=== PATIENT | male | born 1950 | race Caucasian/White ===

== ENCOUNTER → 2019-11-16 | Outpatient (CLI) | payer MEDICARE, OTHER ==
--- NOTE | 2019-11-18 10:39 | CON ---
[address] [address] CONSULTATION Name: FRANCESCO MCDANIEL Room: [facility]#: [id number] Admission: 11/16/19 Attend Phys: Sarkis Palacio MD Discharge: Date of : 48 Report #: [id number] THIS REPORT FOR: //name// cc: Guido Ny Bradley Dean DO ~ THIS REPORT FOR: //name// CC: Dr. Guido Cordoba MD DATE OF CONSULTATION: 11/16/2019 [facility]OGY CONSULT NOTE REFERRING PHYSICIANS: Vladislav Rodríguez and Beronica Cordoba MD and Dr. Guido Ny. PRIMARY SITE AND HISTOPATHOLOGY FINDINGS: The patient has findings, probably consistent with bone metastasis from a primary lung cancer. HISTORY OF PRESENT ILLNESS: The patient is a 69-year-old gentleman who has had worsening back pain for several weeks. He received stereotactic body radiation therapy at [facility] for a presumed lung cancer by Dr. Shetty in 2017. He had g worsening back pain, and he has been taking Percocet for the back pain. He also has an abdominal aortic aneurysm, that measured about 5.5 cm and he is scheduled to see a vascular surgeon on 11/19/2019. The patient is averaging about 4 Percocet per day. The patient had a CT of the abdomen on 10/26/2019 which revealed an abdominal aortic aneurysm that measured 5 cm x 5.5 cm. There was focal wall thickening of the sigmoid colon. There was also a 3rd lumbar vertebral body compression fracture. The patient had a chest CT on 10/26/2019, which revealed a left upper lobe mass measuring 4 cm x 3 cm x 2.5 cm. An MRI of the lumbar spine on 10/26/2019, revealed an abnormal contrast enhancing 3rd lumbar vertebral body pathologic fracture. There was an epidural mass with right neural foraminal paraspinal mass concerning for metastatic disease. There were small enhancing lesions in the second lumbar vertebral body and the fourth lumbar vertebral body. An area was biopsied of the third lumbar vertebral body at [facility] on 01/07/2020 and that revealed a few atypical cells consider suspicious for malignancy. The patient presents to discuss treatment options. PAST MEDICAL HISTORY AND PAST SURGICAL HISTORY: Includes stereotactic body radiation therapy for presumed lung cancer, chronic obstructive pulmonary disease, history of blood transfusion, [place] [address] CONSULTATION Name: FRANCESCO MCDANIEL Room: [facility]#: [id number] Admission: 11/16/19 Attend Phys: Sarkis Palacio MD Discharge: Date of : 48 Report #: [id number] MEDICATIONS: Percocet, he averages about 2 at night, other times he takes 1 every 4 hours as needed. He also takes albuterol, ProAir, alendronate, cyanocobalamin which is vitamin B12, escitalopram, iron sulfate, finasteride, guaifenesin, pantoprazole, prednisone. ALLERGIES: AMOXICILLIN. FAMILY HISTORY: Mother had breast cancer. Brother had cancer, unknown type. Sister had cancer, unknown type. Daughter has multiple myeloma. SOCIAL HISTORY: The patient is retired. He is . He has a daughter and a son. Cigarettes: The patient smokes about half pack per day. REVIEW OF SYSTEMS: GENERAL: The patient has weight loss. SKIN: The patient does not have color changes or itching. LYMPH NODES: The patient does not have enlarged or painful glands. ENDOCRINE: He does not have hot or cold intolerance. HEMATOLOGY AND IMMUNOLOGY: The patient does not have any recent bleeding. MUSCULOSKELETAL: He has back pain in the lumbar region. HEAD AND NECK: He denied having any headache, migraines. RESPIRATORY: He denied having shortness of breath or cough. CARDIOVASCULAR: The patient denied having any palpitations or chest pain. GASTROINTESTINAL: He denied having nausea or vomiting. NEUROLOGIC: He does have balance issues and walking difficulties with the radiating back pain down his right lower extremity. PHYSICAL EXAMINATION: VITAL SIGNS: Height 5 feet 8 inches, weight 106 pounds, blood pressure 91/71, pulse 103, oxygen saturation 96%, respirations 24. LYMPH NODES: He had no palpable cervical or supraclavicular or axillary lymphadenopathy. GENERAL: The patient was alert, oriented, no acute distress. EARS, NOSE AND THROAT: Mouth had no visible lesions. EYES: Pupils were equal, round and reactive to light and accommodation. External ocular movement were intact. HEART: Had a regular rate and rhythm without murmur. LUNGS: were clear to auscultation. ABDOMEN: Not tender. Spleen was not palpable. Liver was at the costal margin. Lumbar spine was tender. MUSCULOSKELETAL: The patient is in a wheelchair. He has 5/5 strength in his upper extremities, 5/5 strength in his left lower extremity and 4/5 strength in 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 He is scheduled to see his medical oncologist, Dr. Rodríguez next week. I will go ahead and try to order a PET scan and the patient was offered palliative radiation therapy to the thoracolumbar spine. The risks, benefits, logistics of palliative radiation therapy to the spine were explained to the patient in detail. The patient gave his witnessed informed consent to proceed with palliative radiation therapy to that area and orders will be written to schedule him for simulation. Thank you for this consultation. Sarkis Palacio M.D. <ELECTRONICALLY SIGNED> By: Sarkis Palacio MD 11/18/19 [id number] Palacio MD /nt
== END ==
LOC: M.RTH 12:00 → EDBD 12:34 → M.RTH 12:34
PROVIDERS: ATTEND Radiology Radiation Oncology
DX: C34.90 Malignant neoplasm of unspecified part of unspecified bronchus or lung (principal)